=== PATIENT | male | born 1970 | race African-American/Black ===

== ENCOUNTER 2023-05-15 21:33 | Inpatient (IN) | payer OTHER, SELFPAY ==
[2023-05-15] MEDS ORDERED: hydrALAZINE 20 MG/ML VIAL ONE (22:09)
[2023-05-15 22:11] LABS: #Basophils 0.1 thou/uL (0.0-0.2); #Eosinphils 0.7 thou/uL (0.0-0.7); #Monocytes 1.2 thou/uL (0.11-0.59); #Neutrophils 6.8 thou/uL (1.40-6.50); %Basophils 0.6 % (0.0-1.0); %Lymphocytes 27.8 % (21.0-51.0); %Neutrophils 55.3 % (42.0-75.0); Hematocrit 45.4 % (42.0-52.0); Hemoglobin 14.6 g/dL (14.0-18.0); Mean Corpuscular HGB CONC 32.2 g/dL (32.0-36.0); Mean Corpuscular Hemoglobin 26.8 pg (27.0-31.0); Mean Corpuscular Volume 83.3 fl (78.0-98.0); Mean Platelet Volume 10.2 fL (7.4-10.4); Platelet Count 296 10x3/uL (130-400); RBC Distribution Width 14.7 % (11.5-14.5); Red Blood Cell (RBC) Count 5.45 mill/uL (4.70-6.10); White Blood Cell (WBC) Count 12.3 10x3/uL (4.8-10.8)
[2023-05-15 22:33] LABS: ALT (SGPT) 16 U/L (8-55); AST (SGOT) 16 U/L (5-34); Albumin 4.3 g/dL (3.5-5.0); Alkaline Phosphatase 66 U/L (40-110); Anion Gap 11 mmol/L (10-20); BUN (Urea Nitrogen) 15 mg/dL (8.4-25.7); Bilirubin, Total 0.4 mg/dL (0.2-1.2); Calc. Creatinine Clearance 0 mL/min (70-130); Calcium 9.2 mg/dL (7.8-10.44); Carbon Dioxide 23 mmol/L (22-29); Chloride 100 mmol/L (98-107); Estimated GFR 82; Globulin 3.4 g/dL (2.4-3.5); Glucose 85 mg/dL (70-105); Protein, Total 7.7 g/dL (6.0-8.3); Sodium 130 mmol/L (136-145)
[2023-05-15 22:36] LABS: Troponin I 0.037 ng/mL (< 0.028)
[2023-05-15] MEDS ORDERED: Aspirin Chewable 81 MG TAB ONE (23:13)
[2023-05-15] MEDS ORDERED: Acetaminophen 500 MG TAB ONE (23:13)
[2023-05-15] MEDS ORDERED: Ondansetron ODT 4 MG TAB SL PRN (23:15)
[2023-05-15] MEDS ORDERED: Acetaminophen 325 MG TAB PO PRN (23:15)
[2023-05-15] MEDS ORDERED: Ondansetron PF 4 MG/2 ML Vial IVP PRN ×2 (23:15→23:17)
[2023-05-15] MEDS ORDERED: Ondansetron ODT 4 MG TAB PO PRN (23:17)
[2023-05-15] MEDS ORDERED: Nitroglycerin 0.4 MG TAB (25 Tab Bottle) SL PRN (23:17)
[2023-05-16 00:52] VITALS: BMI 24.0
[2023-05-16] MEDS ORDERED: hydrALAZINE 20 MG/ML VIAL SLOW IVP PRN (02:00)
[2023-05-16] MEDS: Acetaminophen 325 MG TAB PO PRN ×2 (04:41→09:31)
[2023-05-16 05:45] LABS: #Monocytes 0.4 thou/uL (0.11-0.59); #Neutrophils 13.4 thou/uL (1.40-6.50); %Basophils 0.3 % (0.0-1.0); %Eosinophils 0.1 % (0.0-10.0); %Lymphocytes 6.6 % (21.0-51.0); %Monocytes 2.9 % (0.0-10.0); %Neutrophils 89.6 % (42.0-75.0); Hematocrit 44.5 % (42.0-52.0); Hemoglobin 14.3 g/dL (14.0-18.0); Mean Corpuscular HGB CONC 32.1 g/dL (32.0-36.0); Mean Corpuscular Hemoglobin 26.9 pg (27.0-31.0); Mean Corpuscular Volume 83.6 fl (78.0-98.0); Mean Platelet Volume 11.4 fL (7.4-10.4); Platelet Count 311 10x3/uL (130-400); RBC Distribution Width 14.6 % (11.5-14.5); Red Blood Cell (RBC) Count 5.32 mill/uL (4.70-6.10)
[2023-05-16 06:17] LABS: Troponin I 0.034 ng/mL (< 0.028)
[2023-05-16 06:21] LABS: Anion Gap 15 mmol/L (10-20); BUN (Urea Nitrogen) 15 mg/dL (8.4-25.7); Calc. Creatinine Clearance 89 mL/min (70-130); Calcium 9.4 mg/dL (7.8-10.44); Carbon Dioxide 22 mmol/L (22-29); Cardiac Risk 2.9 (Less than 4.5); Chloride 103 mmol/L (98-107); Cholesterol 186 mg/dl (< 200 Desired); Estimated GFR 87; Glucose 145 mg/dL (70-105); HDL Cholesterol 65 mg/dL (>60 Neg Risk); LDL Cholesterol, Calculated 114 mg/dL; Potassium 3.5 mmol/L (3.5-5.1); Sodium 136 mmol/L (136-145); Triglycerides 33 mg/dL (Less than 150)
[2023-05-16] MEDS: Aspirin Chewable 81 MG TAB PO SCH (08:20)
[2023-05-16] MEDS: Amlodipine 10 MG TAB PO SCH (09:31)
[2023-05-16 11:37] LABS: Troponin I 0.028 ng/mL (< 0.028)
[2023-05-16] MEDS: Fioricet 325/50/40 mg Tablet PO PRN ×2 (12:01→17:12)
[2023-05-16 17:28] LABS: Amphetamine Not Detected (NotDetected); Barbiturates Screen Detected (NotDetected); Benzodiazepine Screen Not Detected (NotDetected); Cocaine Metabolite Screen Not Detected (NotDetected); Methadone Not Detected (NotDetected); Methamphetamine Not Detected (NotDetected); Opiate Screen Not Detected (NotDetected); Oxycodone Screen Not Detected (NotDetected); Phencyclidine (PCP) Not Detected (NotDetected); THC/Cannabinoid Screen Not Detected (NotDetected); Tricyclic Screen Not Detected (NotDetected)
[2023-05-16] MEDS: Naproxen 500 MG TAB PO SCH (20:32)
[2023-05-16] MEDS ORDERED: Atorvastatin Calcium 10 MG TAB PO SCH (21:00)
[2023-05-17 04:46] LABS: #Eosinphils 0.3 thou/uL (0.0-0.7); #Monocytes 1.1 thou/uL (0.11-0.59); #Neutrophils 8.9 thou/uL (1.40-6.50); %Basophils 0.3 % (0.0-1.0); %Eosinophils 2.2 % (0.0-10.0); %Lymphocytes 21.6 % (21.0-51.0); %Monocytes 8.3 % (0.0-10.0); %Neutrophils 67.1 % (42.0-75.0); Hematocrit 45.3 % (42.0-52.0); Hemoglobin 14.8 g/dL (14.0-18.0); Mean Corpuscular HGB CONC 32.7 g/dL (32.0-36.0); Mean Corpuscular Hemoglobin 26.9 pg (27.0-31.0); Mean Corpuscular Volume 82.2 fl (78.0-98.0); Mean Platelet Volume 11.2 fL (7.4-10.4); Platelet Count 320 10x3/uL (130-400); RBC Distribution Width 14.5 % (11.5-14.5); Red Blood Cell (RBC) Count 5.51 mill/uL (4.70-6.10); White Blood Cell (WBC) Count 13.3 10x3/uL (4.8-10.8)
[2023-05-17 05:11] LABS: Anion Gap 12 mmol/L (10-20); BUN (Urea Nitrogen) 19 mg/dL (8.4-25.7); Calc. Creatinine Clearance 75 mL/min (70-130); Calcium 9.2 mg/dL (7.8-10.44); Carbon Dioxide 25 mmol/L (22-29); Chloride 103 mmol/L (98-107); Estimated GFR 71; Glucose 85 mg/dL (70-105); Potassium 3.4 mmol/L (3.5-5.1); Sodium 137 mmol/L (136-145)
[2023-05-17] MEDS ORDERED: Lisinopril 10 MG TAB PO SCH ×2 (09:00→11:15)
[2023-05-17] MEDS ORDERED: Regadenoson 0.4 MG/5 ML SYRINGE ONE (09:31)
[2023-05-17] MEDS: Aspirin Chewable 81 MG TAB PO SCH (12:57)
[2023-05-17] MEDS: Amlodipine 10 MG TAB PO SCH (12:57)
[2023-05-17] MEDS: Naproxen 500 MG TAB PO SCH (12:58)
[2023-05-17 15:55] VITALS: BP 122/79; TEMP 98.3
[2023-05-17] MEDS: Fioricet 325/50/40 mg Tablet PO PRN (15:59)
[2023-05-18] MEDS ORDERED: Lisinopril 20 MG TAB PO SCH (09:00)
[2023-05-19] MEDS ORDERED: FLU VACC QS2023-24(6MOS UP)/PF 60 MCG/0.5 ML SYRINGE IM ONE (01:30)
== END 2023-05-17 17:15 | DRG 305 ==
LOC: ERS 21:33 → EEVIPCON 23:08 → 2SW 23:08 → OBSVTOIN 05-17 08:46
PROVIDERS: ADMIT Internal Medicine; ATTEND Internal Medicine
DX: I16.1 Hypertensive emergency (principal); E87.1 Hypo-osmolality and hyponatremia; D72.829 Elevated white blood cell count, unspecified; F31.9 Bipolar disorder, unspecified; F43.10 Post-traumatic stress disorder, unspecified; I10 Essential (primary) hypertension; Z98.890 Other specified postprocedural states; F17.210 Nicotine dependence, cigarettes, uncomplicated; Z79.82 Long term (current) use of aspirin; Z79.899 Other long term (current) drug therapy; E78.5 Hyperlipidemia, unspecified
CPT/HCPCS: 36415; 71045; 78452; 80048; 80053; 80061; 80306; 84484; 85025; 93005; 93017; 93306; 94760; A9502; J0360; J2785; Q0162

== ENCOUNTER 2023-05-27 22:44 | Emergency (ER) | payer OTHER, SELFPAY ==
[2023-05-27] MEDS ORDERED: Aspirin Chewable 81 MG TAB ONE (23:21)
[2023-05-27] MEDS ORDERED: hydrALAZINE 20 MG/ML VIAL ONE (23:21)
[2023-05-27 23:36] LABS: #Basophils 0.1 thou/uL (0.0-0.2); #Eosinphils 0.9 thou/uL (0.0-0.7); #Monocytes 1.2 thou/uL (0.11-0.59); #Neutrophils 6.3 thou/uL (1.40-6.50); %Basophils 0.6 % (0.0-1.0); %Eosinophils 7.1 % (0.0-10.0); %Lymphocytes 31.6 % (21.0-51.0); %Monocytes 9.5 % (0.0-10.0); %Neutrophils 50.9 % (42.0-75.0); Hematocrit 45.8 % (42.0-52.0); Hemoglobin 14.7 g/dL (14.0-18.0); Mean Corpuscular HGB CONC 32.1 g/dL (32.0-36.0); Mean Corpuscular Hemoglobin 26.8 pg (27.0-31.0); Mean Corpuscular Volume 83.6 fl (78.0-98.0); Mean Platelet Volume 10.5 fL (7.4-10.4); Platelet Count 302 10x3/uL (130-400); RBC Distribution Width 14.6 % (11.5-14.5); Red Blood Cell (RBC) Count 5.48 mill/uL (4.70-6.10); White Blood Cell (WBC) Count 12.3 10x3/uL (4.8-10.8)
[2023-05-28 00:31] LABS: ALT (SGPT) 21 U/L (8-55); AST (SGOT) 15 U/L (5-34); Albumin 4.3 g/dL (3.5-5.0); Alkaline Phosphatase 61 U/L (40-110); Anion Gap 13 mmol/L (10-20); BUN (Urea Nitrogen) 12 mg/dL (8.4-25.7); Bilirubin, Total 0.4 mg/dL (0.2-1.2); Calc. Creatinine Clearance 0 mL/min (70-130); Calcium 9.3 mg/dL (7.8-10.44); Carbon Dioxide 23 mmol/L (22-29); Chloride 107 mmol/L (98-107); Estimated GFR 85; Globulin 3.2 g/dL (2.4-3.5); Glucose 82 mg/dL (70-105); Lipase 42 U/L (8-78); Magnesium 1.9 mg/dL (1.6-2.6); Potassium 3.8 mmol/L (3.5-5.1); Protein, Total 7.5 g/dL (6.0-8.3); Sodium 139 mmol/L (136-145)
[2023-05-28 00:34] LABS: Troponin I 0.038 ng/mL (< 0.028)
== END 2023-05-28 01:15 ==
LOC: ERS 22:44
DX: R07.89 Other chest pain (principal); I10 Essential (primary) hypertension; F17.210 Nicotine dependence, cigarettes, uncomplicated; Z79.899 Other long term (current) drug therapy
CPT/HCPCS: 36415; 71045; 80053; 83690; 83735; 84484; 85025; 85379; 93005; 94760; 96374; J0360

== ENCOUNTER 2023-06-08 23:45 | Observation (INO) | payer OTHER, SELFPAY ==
[2023-06-09] MEDS ORDERED: hydrALAZINE 20 MG/ML VIAL ONE (01:07)
[2023-06-09 01:08] LABS: Delete Auto Diff?? YES; Hematocrit 46.8 % (42.0-52.0); Hemoglobin 15.1 g/dL (14.0-18.0); Manual Diff?? YES; Mean Corpuscular HGB CONC 32.3 g/dL (32.0-36.0); Mean Corpuscular Hemoglobin 26.7 pg (27.0-31.0); Mean Corpuscular Volume 82.7 fl (78.0-98.0); Mean Platelet Volume 10.5 fL (7.4-10.4); Platelet Count 313 10x3/uL (130-400); RBC Distribution Width 14.8 % (11.5-14.5); Red Blood Cell (RBC) Count 5.66 mill/uL (4.70-6.10); White Blood Cell (WBC) Count 15.3 10x3/uL (4.8-10.8)
[2023-06-09 01:30] LABS: ALT (SGPT) 13 U/L (8-55); AST (SGOT) 12 U/L (5-34); Albumin 4.3 g/dL (3.5-5.0); Alkaline Phosphatase 63 U/L (40-110); Anion Gap 15 mmol/L (10-20); BUN (Urea Nitrogen) 14 mg/dL (8.4-25.7); Bilirubin, Total 0.6 mg/dL (0.2-1.2); Calc. Creatinine Clearance 0 mL/min (70-130); Calcium 9.6 mg/dL (7.8-10.44); Carbon Dioxide 25 mmol/L (22-29); Chloride 105 mmol/L (98-107); Estimated GFR 73; Globulin 4.1 g/dL (2.4-3.5); Glucose 86 mg/dL (70-105); Potassium 3.9 mmol/L (3.5-5.1); Protein, Total 8.4 g/dL (6.0-8.3); Sodium 141 mmol/L (136-145)
[2023-06-09 01:33] LABS: Troponin I 0.081 ng/mL (< 0.028)
[2023-06-09 01:39] LABS: Anisocytosis MODERATE=16-30 cells HPF (0-5); Band 2 % (5-11); CellaVision Operator ID LAB.JMM; Eosinophils 13 % (0-10); Large Platelets 13.3 % (0-5); Lymphocytes 15 % (21-51); Macrocytosis MODERATE=16-30 cells HPF (0-5); Monocytes 8 % (0-10); Neutrophil 53 % (42-75); Platelet Adequacy Comment Platelets Normal; Reactive Lymphocytes 7 % (0-10); Smudge Cells 14.3 %; Total Cell Count 98
[2023-06-09] MEDS ORDERED: Aspirin Chewable 81 MG TAB ONE (03:08)
[2023-06-09] MEDS ORDERED: Acetaminophen 500 MG TAB ONE (03:08)
[2023-06-09] MEDS ORDERED: hydrALAZINE 20 MG/ML VIAL SLOW IVP PRN (05:34)
[2023-06-09 05:54] LABS: Troponin I 0.054 ng/mL (< 0.028)
[2023-06-09] MEDS ORDERED: Nitroglycerin 0.4 MG TAB (25 Tab Bottle) SL PRN (07:52)
[2023-06-09] MEDS ORDERED: Ondansetron PF 4 MG/2 ML Vial IVP PRN (07:52)
[2023-06-09] MEDS ORDERED: Acetaminophen 325 MG TAB PO PRN (07:52)
[2023-06-09] MEDS ORDERED: Acetaminophen 650 MG Suppository PR PRN (07:52)
[2023-06-09] MEDS ORDERED: Ondansetron ODT 4 MG TAB PO PRN (07:52)
[2023-06-09] MEDS ORDERED: Electrolyte Replacement Protocol 1 EACH FS SCH (08:00)
[2023-06-09] MEDS ORDERED: Electrolyte Replacement Protocol FS PRN (08:00)
[2023-06-09 08:01] LABS: Troponin I 0.071 ng/mL (< 0.028)
[2023-06-09] MEDS ORDERED: NIFEdipine XL 60 MG ER.TAB PO SCH (09:45)
[2023-06-09 10:45] VITALS: BMI 23.5
[2023-06-09 10:50] LABS: Magnesium 1.9 mg/dL (1.6-2.6)
[2023-06-09] MEDS ORDERED: Magnesium 2 GM/50 ML(in water) 2 GM in Premix 1 BAG IVPB SCH (13:30)
[2023-06-09 14:01] LABS: Troponin I 0.051 ng/mL (< 0.028)
[2023-06-09] MEDS ORDERED: Atorvastatin Calcium 10 MG TAB PO SCH (21:00)
[2023-06-10 05:14] LABS: #Basophils 0.1 thou/uL (0.0-0.2); #Eosinphils 1.1 thou/uL (0.0-0.7); #Monocytes 1.1 thou/uL (0.11-0.59); #Neutrophils 5.7 thou/uL (1.40-6.50); %Basophils 0.7 % (0.0-1.0); %Eosinophils 10.8 % (0.0-10.0); %Lymphocytes 22.4 % (21.0-51.0); %Monocytes 10.5 % (0.0-10.0); %Neutrophils 55.3 % (42.0-75.0); Hematocrit 45.7 % (42.0-52.0); Hemoglobin 14.6 g/dL (14.0-18.0); Mean Corpuscular HGB CONC 31.9 g/dL (32.0-36.0); Mean Corpuscular Hemoglobin 26.5 pg (27.0-31.0); Mean Corpuscular Volume 83.1 fl (78.0-98.0); Mean Platelet Volume 11.1 fL (7.4-10.4); Platelet Count 325 10x3/uL (130-400); RBC Distribution Width 14.7 % (11.5-14.5); White Blood Cell (WBC) Count 10.3 10x3/uL (4.8-10.8)
[2023-06-10 06:57] LABS: Chloride 107 mmol/L (98-107); Potassium 3.6 mmol/L (3.5-5.1); Sodium 140 mmol/L (136-145)
[2023-06-10 06:58] LABS: Glucose 83 mg/dL (70-105)
[2023-06-10 07:00] LABS: Anion Gap 17 mmol/L (10-20); Carbon Dioxide 20 mmol/L (22-29)
[2023-06-10 07:02] LABS: Calc. Creatinine Clearance 77 mL/min (70-130); Estimated GFR 76
[2023-06-10 07:03] LABS: BUN (Urea Nitrogen) 16 mg/dL (8.4-25.7)
[2023-06-10 07:04] LABS: Magnesium 2.2 mg/dL (1.6-2.6)
[2023-06-10] MEDS ORDERED: NIFEdipine XL 60 MG ER.TAB PO SCH (09:00)
[2023-06-10] MEDS ORDERED: Lisinopril 20 MG TAB PO SCH (09:00)
[2023-06-10] MEDS ORDERED: Aspirin Chewable 81 MG TAB PO SCH (09:00)
[2023-06-10 14:03] LABS: Bacteria/HPF None Seen HPF (None Seen); Bilirubin Negative (Negative); Blood, Urine Negative (Negative); Clarity Clear (Clear); Glucose, Urine (Dipstick) Normal (Negative); Ketone, Urine Negative (Negative); Leukocyte Negative Leu/uL (Negative); Nitrite Negative (Negative); Protein, Urine (Dipstick) 10 mg/dL (Neg-Trace); RBC/HPF 0-3 HPF (0-3); Specific Gravity, Urine 1.031 (1.002-1.036); Squamous Epithelial None Seen HPF (0-3); WBC/HPF 0-3 HPF (0-3); pH, Urine 5.5 (5.0-9.0)
[2023-06-10 14:24] LABS: Amphetamine Not Detected (NotDetected); Barbiturates Screen Not Detected (NotDetected); Benzodiazepine Screen Not Detected (NotDetected); Cocaine Metabolite Screen Not Detected (NotDetected); Methadone Not Detected (NotDetected); Methamphetamine Not Detected (NotDetected); Opiate Screen Not Detected (NotDetected); Oxycodone Screen Not Detected (NotDetected); Phencyclidine (PCP) Not Detected (NotDetected); THC/Cannabinoid Screen Not Detected (NotDetected); Tricyclic Screen Not Detected (NotDetected)
[2023-06-10 16:44] VITALS: BP 129/93; TEMP 96.2
[2023-06-10] MEDS ORDERED: Enoxaparin 40 MG (0.4 mL) SYRINGE SC SCH (21:00)
== END 2023-06-10 16:45 ==
LOC: ERS 23:45 → ERHOLD 06-09 04:01 → 2NO 06-09 08:00
PROVIDERS: ADMIT Student in an Organized Health Care Education/Training Program; ATTEND Family Medicine
DX: I16.0 Hypertensive urgency (principal); I11.0 Hypertensive heart disease with heart failure; I50.20 Unspecified systolic (congestive) heart failure; I25.10 Atherosclerotic heart disease of native coronary artery without angina pectoris; D72.829 Elevated white blood cell count, unspecified; F31.2 Bipolar disorder, current episode manic severe with psychotic features; F43.10 Post-traumatic stress disorder, unspecified; F17.210 Nicotine dependence, cigarettes, uncomplicated; I42.2 Other hypertrophic cardiomyopathy; R79.89 Other specified abnormal findings of blood chemistry; Z79.82 Long term (current) use of aspirin; Z79.899 Other long term (current) drug therapy; Z98.890 Other specified postprocedural states
CPT/HCPCS: 36415; 71045; 80048; 80053; 80306; 81001; 83735; 83880; 84484; 85025; 93005; 96374; 96375; G0378; J0360; J3475

== ENCOUNTER 2023-06-20 23:21 | Emergency (ER) | payer SELFPAY ==
[2023-06-21 00:26] LABS: #Basophils 0.1 thou/uL (0.0-0.2); #Eosinphils 1.3 thou/uL (0.0-0.7); #Monocytes 0.8 thou/uL (0.11-0.59); #Neutrophils 5.6 thou/uL (1.40-6.50); %Basophils 0.5 % (0.0-1.0); %Eosinophils 11.5 % (0.0-10.0); %Lymphocytes 30.2 % (21.0-51.0); %Monocytes 7.3 % (0.0-10.0); %Neutrophils 50.2 % (42.0-75.0); Hematocrit 41.4 % (42.0-52.0); Hemoglobin 13.1 g/dL (14.0-18.0); Mean Corpuscular HGB CONC 31.6 g/dL (32.0-36.0); Mean Corpuscular Hemoglobin 26.2 pg (27.0-31.0); Mean Corpuscular Volume 82.8 fl (78.0-98.0); Mean Platelet Volume 10.6 fL (7.4-10.4); Platelet Count 288 10x3/uL (130-400); RBC Distribution Width 14.6 % (11.5-14.5); White Blood Cell (WBC) Count 11.2 10x3/uL (4.8-10.8)
[2023-06-21 00:48] LABS: Troponin I 0.037 ng/mL (< 0.028)
[2023-06-21 00:54] LABS: ALT (SGPT) 18 U/L (8-55); AST (SGOT) 15 U/L (5-34); Alkaline Phosphatase 63 U/L (40-110); Anion Gap 13 mmol/L (10-20); BUN (Urea Nitrogen) 16 mg/dL (8.4-25.7); Bilirubin, Total 0.3 mg/dL (0.2-1.2); Calc. Creatinine Clearance 0 mL/min (70-130); Calcium 9.1 mg/dL (7.8-10.44); Carbon Dioxide 24 mmol/L (22-29); Chloride 107 mmol/L (98-107); Estimated GFR 84; Globulin 3.5 g/dL (2.4-3.5); Glucose 122 mg/dL (70-105); Potassium 3.5 mmol/L (3.5-5.1); Protein, Total 7.5 g/dL (6.0-8.3); Sodium 140 mmol/L (136-145)
[2023-06-21] MEDS ORDERED: cloNIDine 0.1 MG TAB ONE (01:08)
[2023-06-21] MEDS ORDERED: Nitroglycerin 0.4 MG TAB (25 Tab Bottle) ONE (01:52)
[2023-06-21] MEDS ORDERED: Aspirin Chewable 81 MG TAB ONE (01:52)
[2023-06-21 04:21] LABS: Troponin I 0.035 ng/mL (< 0.028)
== END 2023-06-21 04:56 | disposition home or self-care (01) ==
LOC: ERS 23:21
DX: I11.0 Hypertensive heart disease with heart failure (principal); I50.9 Heart failure, unspecified; I42.9 Cardiomyopathy, unspecified; F17.210 Nicotine dependence, cigarettes, uncomplicated; Z79.899 Other long term (current) drug therapy; Z79.82 Long term (current) use of aspirin
CPT/HCPCS: 36415; 71045; 80053; 84484; 85025; 93005; 94760

== ENCOUNTER 2023-06-29 09:38 | Emergency (ER) | payer OTHER, SELFPAY ==
[2023-06-29 10:20] LABS: #Basophils 0.1 thou/uL (0.0-0.2); #Eosinphils 0.9 thou/uL (0.0-0.7); #Neutrophils 6.2 thou/uL (1.40-6.50); %Basophils 0.6 % (0.0-1.0); %Eosinophils 8.4 % (0.0-10.0); %Lymphocytes 23.9 % (21.0-51.0); %Monocytes 9.4 % (0.0-10.0); %Neutrophils 57.3 % (42.0-75.0); Hematocrit 45.1 % (42.0-52.0); Hemoglobin 14.4 g/dL (14.0-18.0); Mean Corpuscular HGB CONC 31.9 g/dL (32.0-36.0); Mean Corpuscular Hemoglobin 26.5 pg (27.0-31.0); Mean Corpuscular Volume 83.1 fl (78.0-98.0); Mean Platelet Volume 10.4 fL (7.4-10.4); Platelet Count 314 10x3/uL (130-400); Red Blood Cell (RBC) Count 5.43 mill/uL (4.70-6.10); White Blood Cell (WBC) Count 10.9 10x3/uL (4.8-10.8)
[2023-06-29 10:53] LABS: Troponin I 0.032 ng/mL (< 0.028)
[2023-06-29 12:04] LABS: ALT (SGPT) 19 U/L (8-55); AST (SGOT) 13 U/L (5-34); Albumin 3.6 g/dL (3.5-5.0); Alkaline Phosphatase 58 U/L (40-110); Anion Gap 9 mmol/L (10-20); BUN (Urea Nitrogen) 20 mg/dL (8.4-25.7); Bilirubin, Total 0.5 mg/dL (0.2-1.2); Calc. Creatinine Clearance 0 mL/min (70-130); Calcium 8.9 mg/dL (7.8-10.44); Carbon Dioxide 24 mmol/L (22-29); Chloride 108 mmol/L (98-107); Estimated GFR 98; Globulin 3.3 g/dL (2.4-3.5); Glucose 88 mg/dL (70-105); Potassium 4.1 mmol/L (3.5-5.1); Protein, Total 6.9 g/dL (6.0-8.3); Sodium 137 mmol/L (136-145)
== END 2023-06-29 13:09 | disposition home or self-care (01) ==
LOC: ERS 09:38
DX: R00.1 Bradycardia, unspecified (principal); I10 Essential (primary) hypertension; F17.210 Nicotine dependence, cigarettes, uncomplicated
CPT/HCPCS: 36415; 80053; 84484; 85025; 93005

== ENCOUNTER 2023-07-11 16:34 | Emergency (ER) | payer SELFPAY ==
[2023-07-11 17:18] LABS: Hematocrit 47.1 % (42.0-52.0); Hemoglobin 15.2 g/dL (14.0-18.0); Manual Diff?? YES; Mean Corpuscular HGB CONC 32.3 g/dL (32.0-36.0); Mean Corpuscular Hemoglobin 26.3 pg (27.0-31.0); Mean Corpuscular Volume 81.6 fl (78.0-98.0); Mean Platelet Volume 10.5 fL (7.4-10.4); Platelet Count 350 10x3/uL (130-400); Red Blood Cell (RBC) Count 5.77 mill/uL (4.70-6.10); White Blood Cell (WBC) Count 14.5 10x3/uL (4.8-10.8)
[2023-07-11 17:19] LABS: Delete Auto Diff?? YES
[2023-07-11] MEDS ORDERED: Aspirin Chewable 81 MG TAB ONE (17:23)
[2023-07-11 17:36] LABS: ALT (SGPT) 22 U/L (8-55); AST (SGOT) 17 U/L (5-34); Albumin 4.5 g/dL (3.5-5.0); Alkaline Phosphatase 73 U/L (40-110); Anion Gap 12 mmol/L (10-20); BUN (Urea Nitrogen) 22 mg/dL (8.4-25.7); Bilirubin, Total 0.4 mg/dL (0.2-1.2); Calc. Creatinine Clearance 0 mL/min (70-130); Calcium 9.7 mg/dL (7.8-10.44); Carbon Dioxide 26 mmol/L (22-29); Chloride 106 mmol/L (98-107); Estimated GFR 75; Globulin 4.2 g/dL (2.4-3.5); Glucose 89 mg/dL (70-105); Lipase 37 U/L (8-78); Potassium 4.3 mmol/L (3.5-5.1); Protein, Total 8.7 g/dL (6.0-8.3); Sodium 140 mmol/L (136-145)
[2023-07-11 17:40] LABS: CellaVision Operator ID LAB.MJL; Eosinophils 11 % (0-10); Lymphocytes 15 % (21-51); Monocytes 8 % (0-10); Neutrophil 63 % (42-75); Platelet Adequacy Comment Platelets Normal; RBC Morphology Within Normal Limits; Reactive Lymphocytes 4 % (0-10); Total Cell Count 104
[2023-07-11 17:41] LABS: Troponin I 0.025 ng/mL (< 0.028)
[2023-07-11] MEDS ORDERED: Furosemide 40 MG (4 mL) VIAL ONE (19:02)
== END 2023-07-11 19:03 ==
LOC: ERS 16:34
DX: I20.89 Other forms of angina pectoris (principal); I11.0 Hypertensive heart disease with heart failure; I50.22 Chronic systolic (congestive) heart failure; I42.2 Other hypertrophic cardiomyopathy; F32.9 Major depressive disorder, single episode, unspecified; F17.210 Nicotine dependence, cigarettes, uncomplicated; Z55.6 Problems related to health literacy; Z79.899 Other long term (current) drug therapy
CPT/HCPCS: 71045; 80053; 83690; 83880; 84484; 85025; 93005; 96361; 96374; J1940

== ENCOUNTER 2023-07-14 19:20 | Emergency (ER) | payer SELFPAY ==
[2023-07-14 20:23] LABS: #Basophils 0.1 thou/uL (0.0-0.2); #Eosinphils 0.6 thou/uL (0.0-0.7); #Monocytes 1.3 thou/uL (0.11-0.59); %Basophils 0.7 % (0.0-1.0); %Eosinophils 4.6 % (0.0-10.0); %Lymphocytes 25.7 % (21.0-51.0); %Monocytes 10.8 % (0.0-10.0); Hematocrit 43.9 % (42.0-52.0); Hemoglobin 14.2 g/dL (14.0-18.0); Mean Corpuscular HGB CONC 32.3 g/dL (32.0-36.0); Mean Corpuscular Hemoglobin 26.7 pg (27.0-31.0); Mean Corpuscular Volume 82.5 fl (78.0-98.0); Mean Platelet Volume 10.4 fL (7.4-10.4); Platelet Count 310 10x3/uL (130-400); Red Blood Cell (RBC) Count 5.32 mill/uL (4.70-6.10)
[2023-07-14] MEDS ORDERED: Aspirin Chewable 81 MG TAB ONE (20:30)
[2023-07-14 20:42] LABS: ALT (SGPT) 16 U/L (8-55); AST (SGOT) 12 U/L (5-34); Albumin 4.2 g/dL (3.5-5.0); Alkaline Phosphatase 62 U/L (40-110); Anion Gap 10 mmol/L (10-20); BUN (Urea Nitrogen) 19 mg/dL (8.4-25.7); Bilirubin, Total 0.5 mg/dL (0.2-1.2); Calc. Creatinine Clearance 0 mL/min (70-130); Calcium 9.3 mg/dL (7.8-10.44); Carbon Dioxide 24 mmol/L (22-29); Chloride 107 mmol/L (98-107); Estimated GFR 72; Globulin 3.6 g/dL (2.4-3.5); Glucose 84 mg/dL (70-105); Potassium 3.7 mmol/L (3.5-5.1); Protein, Total 7.8 g/dL (6.0-8.3); Sodium 137 mmol/L (136-145)
[2023-07-14 20:46] LABS: Troponin I 0.021 ng/mL (< 0.028)
[2023-07-15 00:09] LABS: Troponin I 0.027 ng/mL (< 0.028)
== END 2023-07-15 01:08 | disposition home or self-care (01) ==
LOC: ERS 19:20
DX: R07.9 Chest pain, unspecified (principal); I10 Essential (primary) hypertension; F17.200 Nicotine dependence, unspecified, uncomplicated; F17.210 Nicotine dependence, cigarettes, uncomplicated; Z79.82 Long term (current) use of aspirin; Z79.899 Other long term (current) drug therapy
CPT/HCPCS: 36415; 71045; 80053; 83880; 84484; 85025; 93005

== ENCOUNTER 2023-07-16 18:21 | Emergency (ER) | payer OTHER, SELFPAY ==
[2023-07-16 19:55] LABS: #Basophils 0.1 thou/uL (0.0-0.2); #Eosinphils 0.8 thou/uL (0.0-0.7); #Neutrophils 5.5 thou/uL (1.40-6.50); %Basophils 0.7 % (0.0-1.0); %Eosinophils 7.7 % (0.0-10.0); %Lymphocytes 26.8 % (21.0-51.0); %Monocytes 9.8 % (0.0-10.0); %Neutrophils 54.8 % (42.0-75.0); Hematocrit 43.7 % (42.0-52.0); Mean Corpuscular Hemoglobin 26.2 pg (27.0-31.0); Mean Corpuscular Volume 81.8 fl (78.0-98.0); Mean Platelet Volume 10.5 fL (7.4-10.4); Platelet Count 277 10x3/uL (130-400); RBC Distribution Width 15.2 % (11.5-14.5); Red Blood Cell (RBC) Count 5.34 mill/uL (4.70-6.10)
[2023-07-16 20:21] LABS: ALT (SGPT) 20 U/L (8-55); AST (SGOT) 19 U/L (5-34); Albumin 3.9 g/dL (3.5-5.0); Alkaline Phosphatase 64 U/L (40-110); Anion Gap 12 mmol/L (10-20); BUN (Urea Nitrogen) 17 mg/dL (8.4-25.7); Bilirubin, Total 0.3 mg/dL (0.2-1.2); Calc. Creatinine Clearance 0 mL/min (70-130); Calcium 9.2 mg/dL (7.8-10.44); Carbon Dioxide 27 mmol/L (22-29); Chloride 106 mmol/L (98-107); Estimated GFR 74; Globulin 3.6 g/dL (2.4-3.5); Glucose 77 mg/dL (70-105); Potassium 4.4 mmol/L (3.5-5.1); Protein, Total 7.5 g/dL (6.0-8.3); Sodium 141 mmol/L (136-145)
[2023-07-16 20:23] LABS: Troponin I 0.039 ng/mL (< 0.028)
[2023-07-16] MEDS ORDERED: Aspirin 325 MG TAB ONE (22:01)
[2023-07-16] MEDS ORDERED: Nitroglycerin 0.4 MG TAB (25 Tab Bottle) ONE (22:02)
[2023-07-16] MEDS ORDERED: Morphine 4 MG/ML VIAL ONE (22:02)
[2023-07-16] MEDS ORDERED: hydrALAZINE 20 MG/ML VIAL ONE (22:02)
== END 2023-07-16 22:35 ==
LOC: ERS 18:21
DX: I16.0 Hypertensive urgency (principal); F17.210 Nicotine dependence, cigarettes, uncomplicated; Z55.6 Problems related to health literacy; Z79.899 Other long term (current) drug therapy; Z79.82 Long term (current) use of aspirin; I11.0 Hypertensive heart disease with heart failure; I50.9 Heart failure, unspecified
CPT/HCPCS: 36415; 71045; 80053; 83690; 83880; 84484; 85025; 93005; 96374; 96375; J0360; J2270

== ENCOUNTER 2023-07-20 06:22 | Emergency (ER) | payer OTHER, SELFPAY ==
[2023-07-20 06:54] LABS: #Basophils 0.1 thou/uL (0.0-0.2); #Neutrophils 5.9 thou/uL (1.40-6.50); %Basophils 0.8 % (0.0-1.0); %Eosinophils 8.7 % (0.0-10.0); %Lymphocytes 29.2 % (21.0-51.0); %Monocytes 9.1 % (0.0-10.0); %Neutrophils 51.9 % (42.0-75.0); Hematocrit 45.7 % (42.0-52.0); Hemoglobin 14.8 g/dL (14.0-18.0); Mean Corpuscular HGB CONC 32.4 g/dL (32.0-36.0); Mean Corpuscular Hemoglobin 26.4 pg (27.0-31.0); Mean Corpuscular Volume 81.6 fl (78.0-98.0); Mean Platelet Volume 10.3 fL (7.4-10.4); Platelet Count 312 10x3/uL (130-400); RBC Distribution Width 15.1 % (11.5-14.5); White Blood Cell (WBC) Count 11.3 10x3/uL (4.8-10.8)
[2023-07-20 07:13] LABS: ALT (SGPT) 20 U/L (8-55); AST (SGOT) 16 U/L (5-34); Albumin 4.3 g/dL (3.5-5.0); Alkaline Phosphatase 68 U/L (40-110); Anion Gap 11 mmol/L (10-20); BUN (Urea Nitrogen) 13 mg/dL (8.4-25.7); Bilirubin, Total 0.3 mg/dL (0.2-1.2); Calc. Creatinine Clearance 0 mL/min (70-130); Calcium 9.7 mg/dL (7.8-10.44); Carbon Dioxide 29 mmol/L (22-29); Chloride 104 mmol/L (98-107); Estimated GFR 85; Globulin 3.9 g/dL (2.4-3.5); Glucose 96 mg/dL (70-105); Potassium 3.8 mmol/L (3.5-5.1); Protein, Total 8.2 g/dL (6.0-8.3); Sodium 140 mmol/L (136-145)
[2023-07-20 07:14] LABS: Troponin I 0.029 ng/mL (< 0.028)
[2023-07-20 09:23] LABS: Troponin I 0.034 ng/mL (< 0.028)
[2023-07-20] MEDS ORDERED: Aspirin Chewable 81 MG TAB ONE (10:21)
[2023-07-20] MEDS ORDERED: Ondansetron PF 4 MG/2 ML Vial ONE (10:21)
== END 2023-07-20 11:21 ==
LOC: ERS 06:22
DX: I11.0 Hypertensive heart disease with heart failure (principal); I50.9 Heart failure, unspecified; F17.210 Nicotine dependence, cigarettes, uncomplicated
CPT/HCPCS: 36415; 71045; 80053; 83880; 84484; 85025; 93005; 96374; J2405

== ENCOUNTER 2023-08-03 00:26 | Emergency (ER) | payer OTHER, SELFPAY ==
[2023-08-03 01:35] LABS: #Basophils 0.1 thou/uL (0.0-0.2); #Eosinphils 0.9 thou/uL (0.0-0.7); #Monocytes 0.9 thou/uL (0.11-0.59); #Neutrophils 7.2 thou/uL (1.40-6.50); %Basophils 0.7 % (0.0-1.0); %Lymphocytes 25.2 % (21.0-51.0); %Monocytes 7.7 % (0.0-10.0); %Neutrophils 59.1 % (42.0-75.0); Hematocrit 43.3 % (42.0-52.0); Hemoglobin 13.9 g/dL (14.0-18.0); Mean Corpuscular HGB CONC 32.1 g/dL (32.0-36.0); Mean Corpuscular Hemoglobin 26.4 pg (27.0-31.0); Mean Corpuscular Volume 82.3 fl (78.0-98.0); Mean Platelet Volume 9.8 fL (7.4-10.4); Platelet Count 329 10x3/uL (130-400); RBC Distribution Width 15.5 % (11.5-14.5); Red Blood Cell (RBC) Count 5.26 mill/uL (4.70-6.10); White Blood Cell (WBC) Count 12.1 10x3/uL (4.8-10.8)
[2023-08-03 01:57] LABS: ALT (SGPT) 26 U/L (8-55); AST (SGOT) 16 U/L (5-34); Albumin 4.3 g/dL (3.5-5.0); Alkaline Phosphatase 70 U/L (40-110); Anion Gap 16 mmol/L (10-20); BUN (Urea Nitrogen) 20 mg/dL (8.4-25.7); Bilirubin, Total 0.5 mg/dL (0.2-1.2); Calc. Creatinine Clearance 0 mL/min (70-130); Calcium 9.3 mg/dL (7.8-10.44); Carbon Dioxide 22 mmol/L (22-29); Chloride 106 mmol/L (98-107); Estimated GFR 83; Globulin 3.7 g/dL (2.4-3.5); Glucose 114 mg/dL (70-105); Potassium 3.7 mmol/L (3.5-5.1); Sodium 140 mmol/L (136-145)
[2023-08-03 01:58] LABS: Troponin I 0.039 ng/mL (< 0.028)
== END 2023-08-03 03:39 ==
LOC: ERS 00:26
DX: I11.0 Hypertensive heart disease with heart failure (principal); I50.9 Heart failure, unspecified; E78.5 Hyperlipidemia, unspecified; F17.210 Nicotine dependence, cigarettes, uncomplicated; Z79.899 Other long term (current) drug therapy; Z79.82 Long term (current) use of aspirin
CPT/HCPCS: 36415; 80053; 84484; 85025; 93005

== ENCOUNTER 2023-08-04 23:32 | Emergency (ER) | payer OTHER, SELFPAY ==
[2023-08-05] MEDS ORDERED: Aspirin Chewable 81 MG TAB ONE (00:11)
[2023-08-05] MEDS ORDERED: Nitroglycerin 2% Ointment 1 INCH/1 GM Packet ONE (00:12)
[2023-08-05 00:29] LABS: #Basophils 0.1 thou/uL (0.0-0.2); #Eosinphils 0.9 thou/uL (0.0-0.7); #Monocytes 0.9 thou/uL (0.11-0.59); #Neutrophils 5.4 thou/uL (1.40-6.50); %Basophils 0.6 % (0.0-1.0); %Eosinophils 8.8 % (0.0-10.0); %Lymphocytes 27.1 % (21.0-51.0); %Monocytes 8.7 % (0.0-10.0); %Neutrophils 54.5 % (42.0-75.0); Hematocrit 43.9 % (42.0-52.0); Hemoglobin 13.9 g/dL (14.0-18.0); Mean Corpuscular HGB CONC 31.7 g/dL (32.0-36.0); Mean Corpuscular Hemoglobin 25.9 pg (27.0-31.0); Mean Corpuscular Volume 81.9 fl (78.0-98.0); Platelet Count 338 10x3/uL (130-400); RBC Distribution Width 15.7 % (11.5-14.5); Red Blood Cell (RBC) Count 5.36 mill/uL (4.70-6.10); White Blood Cell (WBC) Count 9.9 10x3/uL (4.8-10.8)
[2023-08-05 00:50] LABS: ALT (SGPT) 21 U/L (8-55); AST (SGOT) 14 U/L (5-34); Albumin 4.2 g/dL (3.5-5.0); Alkaline Phosphatase 66 U/L (40-110); Anion Gap 16 mmol/L (10-20); BUN (Urea Nitrogen) 18 mg/dL (8.4-25.7); Bilirubin, Total 0.5 mg/dL (0.2-1.2); Calc. Creatinine Clearance 0 mL/min (70-130); Calcium 9.3 mg/dL (7.8-10.44); Carbon Dioxide 23 mmol/L (22-29); Chloride 108 mmol/L (98-107); Estimated GFR 62; Globulin 3.3 g/dL (2.4-3.5); Glucose 100 mg/dL (70-105); Potassium 3.8 mmol/L (3.5-5.1); Protein, Total 7.5 g/dL (6.0-8.3); Sodium 143 mmol/L (136-145)
[2023-08-05 00:51] LABS: Troponin I 0.028 ng/mL (< 0.028)
== END 2023-08-05 01:34 ==
LOC: EEVIPCON 23:32 → ERS 23:32
DX: I11.0 Hypertensive heart disease with heart failure (principal); I50.9 Heart failure, unspecified; E78.5 Hyperlipidemia, unspecified; I42.9 Cardiomyopathy, unspecified; F17.210 Nicotine dependence, cigarettes, uncomplicated; Z55.6 Problems related to health literacy
CPT/HCPCS: 36415; 71045; 80053; 84484; 85025; 93005